=== PATIENT | male | born 1965 | race Caucasian/White ===

== ENCOUNTER 2019-04-24 07:23 | Day surgery (SDC) | payer BC ==
[2019-04-23 11:50] VITALS: BMI 24.3
[2019-04-24] MEDS ORDERED: Fentanyl 100 MCG/2 ML VIAL ONE (08:35)
[2019-04-24] MEDS ORDERED: EPINEPHrine 1 MG/ML AMP ONE ×2 (08:58→09:42)
[2019-04-24] MEDS ORDERED: Midazolam HCl 2 mg/2 ml Vial ONE ×2 (09:11→09:17)
[2019-04-24] MEDS ORDERED: Propofol 500 MG/50 ML VIAL ONE (09:14)
[2019-04-24] MEDS ORDERED: Ondansetron PF 4 MG/2 ML Vial ONE (09:59)
[2019-04-24] MEDS ORDERED: Dexamethasone 4 mg/ml Vial ONE (09:59)
--- NOTE | 2019-04-24 12:35 | OP ---
DATE OF PROCEDURE: 04/24/2019 PREOPERATIVE DIAGNOSIS: Right anterior exophytic vocal cord lesion. POSTOPERATIVE DIAGNOSIS: Right anterior exophytic vocal cord lesion. PROCEDURES PERFORMED: 1. Microsuspension laryngoscopy with biopsy of right exophytic vocal cord lesion. 2. Microsuspension laryngoscopy with removal of right vocal cord lesion using a laryngeal endoscopic shaver. PROCEDURE IN DETAIL: After consent was obtained, the patient was identified and brought to the operating room, and placed on the operating table in supine position. General endotracheal anesthesia was obtained with a Emily Jet ventilating tube and the larynx was treated with topical lidocaine. We then positioned for surgery and placed laryngoscope and did endoscopic evaluation of the larynx. He was found to have a bulky keratinized exophytic lesion extending over the surface of the vocal cord and wrapping around the entirety of the right vocal cord. The left vocal cord appeared normal. This approach did not involve the anterior commissure. We got biopsies and sent for histologic evaluation. We then used a Mirifice laryngeal shaver and debulk the lesion with care not to injure the true vocal cord or the vocal ligament. The patient was then awakened, extubated, and taken to the recovery room in stable condition prior to discharge home. Job ID: [id number]
[2019-04-24] MEDS ORDERED: Lidocaine 1% PF 5 ML VIAL ONE (16:00)
[2019-04-24] MEDS ORDERED: ePHEDrine 50 MG/ML VIAL ONE (16:00)
[2019-04-24] MEDS ORDERED: PROPOFOL 200 MG/20 ML VIAL ONE (16:00)
== END 2019-04-24 11:18 | disposition home or self-care (01) ==
LOC: SDC 07:23
PROVIDERS: ATTEND Specialist
PROC: 0CBT8ZZ Excision of Right Vocal Cord, Via Natural or Artificial Opening Endoscopic (ICD-10-PCS; principal; 2019-04-24)
DX: J38.3 Other diseases of vocal cords (principal); I10 Essential (primary) hypertension; F17.200 Nicotine dependence, unspecified, uncomplicated; Z79.899 Other long term (current) drug therapy
CPT/HCPCS: 88305; 93005; 93010; J0171; J1100; J2001; J2250; J2405; J2704; J3010; J3490

== ENCOUNTER 2019-11-07 11:10 | Outpatient (CLI) | payer BC | END 2019-11-07 11:11 | disposition home or self-care (01) | LOC: CTENTCT 11:10 | PROVIDERS: ATTEND Specialist | DX: J32.9 Chronic sinusitis, unspecified (principal) | CPT/HCPCS: 70486 ==

== ENCOUNTER 2024-03-25 10:47 | Outpatient (CLI) | payer OTHER | END 2024-03-25 10:48 | disposition home or self-care (01) | LOC: RAD 10:47 | PROVIDERS: ATTEND Internal Medicine Critical Care Medicine | DX: J44.9 Chronic obstructive pulmonary disease, unspecified (principal) | CPT/HCPCS: 71046 ==

== ENCOUNTER 2024-04-01 09:15 | Inpatient (IN) | payer OTHER ==
[2024-04-01] MEDS ORDERED: EPINEPHrine 1 MG/10 ML Abboject SYRINGE ONE (09:19)
[2024-04-01] MEDS ORDERED: Amiodarone 150 MG/3 ML VIAL ONE (09:19)
[2024-04-01] MEDS ORDERED: Dexamethasone 10 MG/ML VIAL ONE (09:26)
[2024-04-01] MEDS ORDERED: EPINEPHrine 1 MG/ML VIAL ONE (09:28)
[2024-04-01 09:29] LABS: #Basophils 0.07 10x3/uL (0.0-0.2); %Basophils 0.3 % (0.0-1.0); %Eosinophils 0.2 % (0.0-10.0); %Lymphocytes 13.6 % (21.0-51.0); %Neutrophils 74.8 % (42.0-75.0); Hematocrit 32.9 % (42.0-52.0); Hemoglobin 11.7 g/dL (14.0-18.0); Mean Corpuscular HGB CONC 35.6 g/dL (32.0-36.0); Mean Corpuscular Hemoglobin 34.8 pg (27.0-31.0); Mean Corpuscular Volume 97.9 fL (78.0-98.0); Platelet Count 165 10x3/uL (130-400); RBC Distribution Width 12.6 % (11.5-14.5); Red Blood Cell (RBC) Count 3.36 mill/uL (4.70-6.10)
[2024-04-01] MEDS ORDERED: Sodium Chloride 0.9% 100 ML ONE (09:33)
[2024-04-01] MEDS ORDERED: CEFAZOLIN 2 GM VIAL ONE (09:33)
[2024-04-01 09:42] LABS: ALT (SGPT) 72 U/L (8-55); AST (SGOT) 123 U/L (5-34); Alkaline Phosphatase 46 U/L (40-110); Anion Gap 19 mmol/L (10-20); BUN (Urea Nitrogen) 6 mg/dL (8.4-25.7); Bilirubin, Total 0.4 mg/dL (0.2-1.2); Calc. Creatinine Clearance 0 mL/min (70-130); Calcium 7.2 mg/dL (7.8-10.44); Carbon Dioxide 19 mmol/L (22-29); Chloride 94 mmol/L (98-107); Estimated GFR 102; Globulin 1.9 g/dL (2.4-3.5); Glucose 206 mg/dL (70-105); Potassium 3.9 mmol/L (3.5-5.1); Protein, Total 3.9 g/dL (6.0-8.3); Sodium 128 mmol/L (136-145)
[2024-04-01 09:50] LABS: INR-International Normal Ratio 1.7
[2024-04-01 09:51] LABS: PTT 53.3 sec (22.9-36.1)
[2024-04-01 09:52] LABS: Analyzer IN Cardio ER; Base Excess (BEa) -15.7 mEq/L (-2.0 to +3.0); Calcium, Ionized (arterial) 1.06 mmol/L (1.12-1.30); Carboxyhemoglobin (COHb) 0.3 gm% (0.0-3.0); Hematocrit-ABG 37 % (42.0-52.0); Hemoglobin (Hb) 12.6 g/dL (14.0-18.0); O2 Tension (PaO2), arterial 74.4 mmHg (> 80.0); Potassium - ABG Lab 3.33 mmol/L (3.70-5.30)
[2024-04-01 09:56] LABS: pH, Arterial 6.962 (7.35-7.45)
[2024-04-01 09:57] LABS: CO2 Tension 76.8 mmHg (35.0-45.0); Puncture Site Right Radial
[2024-04-01] MEDS ORDERED: Sodium Bicarb 50 mEq/50 ML VIAL ONE (09:57)
[2024-04-01 10:06] LABS: Bilirubin Negative (Negative); Blood, Urine Trace (Negative); CAUTI Indications for Culture Alt mental st,lethar; Clarity Turbid (Clear); Glucose, Urine (Dipstick) Normal (Negative); Ketone, Urine Negative (Negative); Leukocyte Negative Leu/uL (Negative); Nitrite Negative (Negative); Protein, Urine (Dipstick) 70 mg/dL (Neg-Trace); RBC/HPF 0-3 HPF (0-3); Specific Gravity, Urine 1.012 (1.002-1.036); Squamous Epithelial 0-3 HPF (0-3); Urobilinogen Normal mg/dL (Less than 2); WBC/HPF 0-3 HPF (0-3); pH, Urine 5.5 (5.0-9.0)
[2024-04-01 10:07] LABS: Bacteria/HPF Rare-Few HPF (None Seen)
[2024-04-01 10:08] LABS: Urine Culture Reflex No No
[2024-04-01] MEDS ORDERED: Ondansetron PF 4 MG/2 ML Vial IVP PRN (10:21)
[2024-04-01] MEDS ORDERED: Bisacodyl 10 MG SUPP PR PRN (10:21)
[2024-04-01] MEDS ORDERED: Glucagon 1 MG/ML KIT IM PRN (11:08)
[2024-04-01] MEDS ORDERED: Dextrose 50% Abboject 50 ML SYRINGE SLOW IVP PRN (11:08)
[2024-04-01] MEDS ORDERED: Dextrose 5% in Water 1,000 ML IV PRN (11:08)
[2024-04-01] MEDS ORDERED: Ipratropium/Albuterol 3 ML NEB NEB PRN (11:33)
[2024-04-01] MEDS: Hydrocortisone Sod Succ/PF 100 mg/2 ml Vial IVP SCH (12:29)
[2024-04-01] MEDS: Albumin 25% 25 GM (100 mL) BOT IVPB SCH (12:29)
[2024-04-01 12:36] VITALS: BMI 27.1
[2024-04-01 12:57] LABS: Lactic Acid 10.7 mmol/L (0.5-2.2)
[2024-04-01] MEDS: Sodium Chloride 0.9% 1,000 ML IV SCH (12:57)
[2024-04-01] MEDS ORDERED: Propofol 1,000 MG/100 ML VIAL IV PRN (15:33)
[2024-04-01] MEDS: Propofol 1,000 MG/100 ML VIAL IV ONE (15:43)
[2024-04-01] MEDS ORDERED: Propofol BOLUS 1,000 MG/100 ML VIAL IV PRN (15:45)
[2024-04-01] MEDS: Piperacillin/Tazobactam 3.375 GM in Sodium Chloride 0.9% 100 ML IVPB SCH ×3 (17:26→20:56)
[2024-04-01] MEDS: HumaLOG 300 UNITS/3 ML VIAL SC PRN (17:27)
[2024-04-01] MEDS: Lorazepam 2 MG/ML VIAL SLOW IVP SCH (17:27)
[2024-04-01] MEDS ORDERED: Acetaminophen 650 MG/20.3 ML UDCUP PO PRN (17:56)
[2024-04-01] MEDS: EPINEPHrine 4 MG in Dextrose 5% in Water 250 ML IV SCH (19:41)
[2024-04-01] MEDS: Famotidine/PF 20 mg/2ml Vial SLOW IVP SCH (20:06)
[2024-04-02 05:30] LABS: #Basophils Less than 0.03 10x3/uL (0.0-0.2); #Eosinphils Less than 0.03 10x3/uL (0.0-0.7); %Basophils 0.1 % (0.0-1.0); %Lymphocytes 1.1 % (21.0-51.0); %Monocytes 5.4 % (0.0-10.0); %Neutrophils 92.6 % (42.0-75.0); Hematocrit 28.7 % (42.0-52.0); Hemoglobin 10.4 g/dL (14.0-18.0); Mean Corpuscular HGB CONC 36.2 g/dL (32.0-36.0); Mean Corpuscular Hemoglobin 34.2 pg (27.0-31.0); Mean Corpuscular Volume 94.4 fL (78.0-98.0); Mean Platelet Volume 9.5 fL (7.4-10.4); Platelet Count 144 10x3/uL (130-400); RBC Distribution Width 12.6 % (11.5-14.5); Red Blood Cell (RBC) Count 3.04 mill/uL (4.70-6.10)
[2024-04-02 06:56] LABS: ALT (SGPT) 55 U/L (8-55); AST (SGOT) 108 U/L (5-34); Albumin 2.6 g/dL (3.5-5.0); Alkaline Phosphatase 28 U/L (40-110); Anion Gap 17 mmol/L (10-20); BUN (Urea Nitrogen) 15 mg/dL (8.4-25.7); Bilirubin, Total 0.7 mg/dL (0.2-1.2); Calc. Creatinine Clearance 54 mL/min (70-130); Calcium 7.1 mg/dL (7.8-10.44); Carbon Dioxide 23 mmol/L (22-29); Chloride 94 mmol/L (98-107); Estimated GFR 49; Globulin 1.9 g/dL (2.4-3.5); Glucose 143 mg/dL (70-105); Potassium 3.9 mmol/L (3.5-5.1); Protein, Total 4.5 g/dL (6.0-8.3); Sodium 130 mmol/L (136-145)
[2024-04-02 07:03] LABS: Actual Bicarbonate (HCO3a) 20.8 mEq/L (22-28); Base Excess (BEa) -1.4 mEq/L (-2.0 to +3.0); CO2 Tension 27.7 mmHg (35.0-45.0); Calcium, Ionized (arterial) 0.96 mmol/L (1.12-1.30); Carboxyhemoglobin (COHb) 0.3 gm% (0.0-3.0); Hematocrit-ABG 34 % (42.0-52.0); Hemoglobin (Hb) 11.4 g/dL (14.0-18.0); O2 Tension (PaO2), arterial 73.1 mmHg (> 80.0); Potassium - ABG Lab 3.63 mmol/L (3.70-5.30); pH, Arterial 7.494 (7.35-7.45)
[2024-04-02 07:04] LABS: ALV-art Gradient 320.075 mmHg (0-20); Puncture Site RRA
[2024-04-02] MEDS: Enoxaparin 40 MG (0.4 mL) SYRINGE SC SCH (08:45)
[2024-04-02] MEDS: Propofol 1,000 MG/100 ML VIAL IV PRN (08:45)
[2024-04-02] MEDS: Morphine 4 MG/ML VIAL SLOW IVP PRN (10:00)
[2024-04-02] MEDS: Lorazepam 2 MG/ML VIAL SLOW IVP PRN (10:02)
[2024-04-02 10:43] VITALS: BP 152/84
[2024-04-02 12:04] VITALS: TEMP 97.7
== END 2024-04-02 12:21 | disposition expired | DRG 146 ==
LOC: ERS 09:15 → CCU 11:00
PROVIDERS: ADMIT Hospitalist; ATTEND Hospitalist
PROC: 4A133R1 Monitoring of Arterial Saturation, Peripheral, Percutaneous Approach (ICD-10-PCS; principal; 2024-04-01)
PROC: 3E033XZ Introduction of Vasopressor into Peripheral Vein, Percutaneous Approach (ICD-10-PCS; 2024-04-01)
PROC: 0BH17EZ Insertion of Endotracheal Airway into Trachea, Via Natural or Artificial Opening (ICD-10-PCS; 2024-04-01)
PROC: 5A1935Z Respiratory Ventilation, Less than 24 Consecutive Hours (ICD-10-PCS; 2024-04-01)
PROC: 06HY33Z Insertion of Infusion Device into Lower Vein, Percutaneous Approach (ICD-10-PCS; 2024-04-01)
DX: C32.9 Malignant neoplasm of larynx, unspecified (principal); J96.01 Acute respiratory failure with hypoxia; J96.02 Acute respiratory failure with hypercapnia; E87.1 Hypo-osmolality and hyponatremia; E87.20 Acidosis, unspecified; J44.1 Chronic obstructive pulmonary disease with (acute) exacerbation; G93.1 Anoxic brain damage, not elsewhere classified; Z51.5 Encounter for palliative care; Z66 Do not resuscitate; G47.33 Obstructive sleep apnea (adult) (pediatric); I10 Essential (primary) hypertension; F41.9 Anxiety disorder, unspecified; I46.9 Cardiac arrest, cause unspecified; Z79.899 Other long term (current) drug therapy; Z98.890 Other specified postprocedural states; Z87.891 Personal history of nicotine dependence
CPT/HCPCS: 36415; 36416; 36600; 71045; 71275; 74018; 80053; 81001; 82805; 83605; 83690; 83880; 84145; 85025; 85379; 85610; 85730; 86140; 87040; 87070; 87205; 93005; 94002; 94003; J0171; J0282; J1100; J1650; J1720; J1815; J2060; J2270; J2543; J2704; J3490; J7050; J7070; P9047; S0028